=== PATIENT | female | born 1955 | race African-American/Black ===

== ENCOUNTER 2016-10-15 15:54 | Emergency (ER) | END 2016-10-15 18:56 | disposition home or self-care (01) | DX: H10.89 Other conjunctivitis (principal); I10 Essential (primary) hypertension; E11.9 Type 2 diabetes mellitus without complications; F17.210 Nicotine dependence, cigarettes, uncomplicated; Z79.82 Long term (current) use of aspirin; Z79.84 Long term (current) use of oral hypoglycemic drugs ==